=== PATIENT | female | born 1975 ===

== ENCOUNTER 2017-07-31 17:53 | Emergency (ER) | payer OTHER ==
[2017-07-31] MEDS ORDERED: EPINEPHRINE 1 MG/ML 1 ML VIAL ONE (18:10)
[2017-07-31] MEDS ORDERED: methylPREDNISolone 125 MG* 2 ML VIAL ONE (18:10)
[2017-07-31] MEDS ORDERED: diPHENhydraMINE IV* 50 MG/ML 1 ml VIAL (BENADRYL) ONE (18:10)
[2017-07-31] MEDS ORDERED: Famotidine IV* 10 MG/ML 2 ML (20 mg) ONE (18:10)
[2017-07-31] MEDS ORDERED: NS 0.9% 1000 ML* 1,000 ML IV ONE (18:31)
[2017-07-31] MEDS ORDERED: NS 0.9% 1000 ML* 1,000 ML BOLUS SCH (18:45)
--- NOTE | 2017-07-31 19:05 | ED ---
Annika Guillen Abhishek, scribed for Anitha Gonzalez MD on 07/31/17 at 1812 . Allergic Reaction/Systemic - HPI Summary HPI Summary: This patient is a 42 year old F presenting to [facility] accompanied by two females with a chief complaint of allergic reaction since 165507/31/17. Patient describes allergic reaction as pruritic, hives, redness and swelling. Patiently believes the source may be turkey that she ate tonight. Pt has other food allergies, but no known medication allergies. Redness and swelling on her lower extremities is prominent and the hives are diffuse over body and extremities. The patient rates the pain 0/10 in severity. Symptoms aggravated by unknown source. Symptoms alleviated by nothing. Patient reports throat feeling "thick", and hoarseness in voice. Patient denies SOB. Patient states that chest was itchy at first and the LMNP was the beginning of the month. States she is not Pg. Prior allergies noted and reviewed such as fish and other seafood. Pt given meds from the anaphylaxis kit upon the initial interview: epinephrine 0.3mg IM, benadryl 50mg IV, solumedrol 125mg IV, famotidine 40mg IV. Pt had taken benadryl 50mg orally prior to coming to the ED. Additional benadryl was given knowing this. - History of Current Complaint Chief Complaint: EDAllergicReaction Time Seen by Provider: 07/31/17 18:01 Hx Obtained From: Patient Hx Last Menstrual Period: Beginning of July 2017 Onset/Duration: Sudden Onset, Started hours ago - 1700, Still Present Timing: Constant Severity Initially: Severe Severity Currently: Severe Pain Intensity: 0 Pain Scale Used: 0-10 Numeric Location: Diffuse Character: Swelling, Pruritus, Hives Aggravating Factor(s): Nothing Alleviating Factor(s): Nothing Associated Signs And Symptoms: Positive: Hoarseness, Rash, Throat Tightening. Negative: Chest Pain, Difficulty Breathing, Lightheadedness - Related Hx Possible Reaction To: Unknown - Allergies/Home Medications Allergies/Adverse Reactions: Allergies Allergy/AdvReac Type Severity Reaction Status Date / Time No Known Allergies Allergy Verified 07/31/17 17:57 PMH/Surg Hx/FS Hx/Imm Hx Endocrine/Hematology History: Reports: Other Endocrine/Hematological Disorders - eczema Cardiovascular History: Denies: Hx Cardiac Arrest, Hx Coronary Artery Disease, Hx Myocardial Infarction, Other Cardiovascular Problems/Disorders Respiratory History: Reports: Hx Asthma Opthamlomology History: Denies: Hx Legally Blind EENT History: Denies: Hx Deafness, Hx Hearing Problem, Hx Hearing Aid - Surgical History Surgery Procedure, Year, and Place: No prior Surgery Infectious Disease History: No Infectious Disease History: Denies: Traveled Outside the [place] in Last 30 Days - Family History Known Family History: Positive: Other - Allergies and eczema - Social History 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 Lives: With Family - mother Alcohol Use: None Hx Substance Use: No Substance Use Type: Reports: None Hx Tobacco Use: No Smoking Status (MU): Never Smoked Tobacco Review of Systems Constitutional: Negative Eyes: Negative ENT: Other - throat feels thick , hoarse voice Cardiovascular: Negative Negative: Shortness Of Breath Gastrointestinal: Negative Genitourinary: Negative Positive: Edema Positive: Other - Hives, pruritis and redness Neurological: Negative Psychological: Normal All Other Systems Reviewed And Are Negative: Yes Physical Exam - Summary Physical Exam Summary: Appearance: Ill-appearing, no pain distress, Well-nourished, Hoarse voice, not hypotensive Skin: total body hives, thick, lichenified skin secondary to eczema Head: Face and and bilat upper eye lid swelling, Swelling around the mouth with redness Eyes: Conjunctiva clear ENT: Pharynx: uvula swelling but airway is patent Neck: Supple, no JVD, no nodes Respiratory: Lungs clear, Normal breath sounds, no respiratory distress Cardio: RRR, No murmur, pulses normal, brisk capillary refill, S1 and S2 normal Abdomen: soft, nontender, benign Bowel sounds: present Musculoskeletal: Strength Intact/ ROM intact Neuro: Alert, muscle tone normal, facial symmetry, speech normal, sensory/motor intact Psychological: Normal Triage Information Reviewed: Yes Vital Signs On Initial Exam: Initial Vitals Temp Pulse Resp BP Pulse Ox 98.3 F 82 18 109/67 100 07/31/17 17:55 07/31/17 17:55 07/31/17 17:55 07/31/17 17:55 07/31/17 17:55 Vital Signs Reviewed: Yes Diagnostics - Vital Signs Vital Signs Temp Pulse Resp BP Pulse Ox 07/31/17 17:55 98.3 F 82 18 109/67 100 - Laboratory Lab Statement: Any lab studies that have been ordered have been reviewed, and results considered in the medical decision making process. Re-Evaluation - Re-Evaluation First Eval Re-Evaluation Time: 18:30 - pulse 90's Bp 120's systolic Change: Improved Allergic Reaction Course/Dx - Course Course Of Treatment: Pt is undergoing obsevation for the effects of the medication and the anaphylaxis. Pt will be signed out to Dr. Herrmann, pending disposition. - Diagnoses Differential Diagnosis/HQI/PQRI: Positive: Anaphylaxis, Bronchospasm, Urticaria Provider Diagnoses: Anaphylaxis - Critical Care Time Critical Care Time: 30-74 min - 30 minutes Discharge - Discharge Plan Condition: Stable Disposition: OTHER Discharge Disposition Comment: care to Dr. Herrmann at change of shift 1900 pending observation Prescriptions: Famotidine TAB 40 MG(NF) [Pepcid TAB 40 MG(NF)] 40 mg PO DAILY #5 tab predniSONE TAB* [Deltasone TAB*] 40 mg PO DAILY #10 tab Patient Education Materials: Anaphylaxis (ED) Forms: *Work Release Additional Instructions: You were given benadryl 50mg IV, solumedrol 125mg IV, and famotidine 40mg IV with epinephrine 0.3mg IM at 6:00pm with good results. You should continue the benadryl 50mg around the clock every 6 hrs for the next 48 hrs at least, and then as needed. Start the prescriptions prednisone and famotidine on 08/01/17, tomorrow, morning. Avoid turkey and label yourself as allergic. Return to the ER if you have new or worsening symptoms. The documentation as recorded by the Annika goodwin Abhishek accurately reflects the service I personally performed and the decisions made by me, Anitha Gonzalez MD.
[2017-07-31] MEDS ORDERED: LORazepam INJ* 2 MG/ML 1 ML VIAL IV PUSH ONE (19:23)
[2017-07-31 20:14] VITALS: BP 108/66
--- NOTE | 2017-07-31 20:18 | ED ---
Vincenzo Guillen Thomas, scribed for Jorge Alberto Herrmann MD on 07/31/17 at 2000 . Progress - Progress Note Progress Note: The patient is a sign out from Dr. Gonzalez at shift change, pending observation in the ED and awaiting discharge. At re-evaluation at 20:00, the patient feels better. She will be discharged home to follow up with her primary care provider. Condition at discharge is stable. Course/Dx - Diagnoses Provider Diagnoses: Allergic reaction The documentation as recorded by the Vincenzo goodwin Thomas accurately reflects the service I personally performed and the decisions made by Montez chakraborty Abdul, MD.
== END 2017-07-31 20:14 | disposition home or self-care (01) ==
LOC: ED 17:53
DX: T78.2XXA Anaphylactic shock, unspecified, initial encounter (principal); X58.XXXA Exposure to other specified factors, initial encounter; Y92.9 Unspecified place or not applicable; J45.909 Unspecified asthma, uncomplicated
CPT/HCPCS: 96360; 96374; 99282; J1200; J2060; J2930